=== PATIENT | male | born 1960 | race Caucasian/White ===

== ENCOUNTER 2019-04-07 15:31 | Emergency (ER) | payer SELFPAY ==
[~2019-04-07] VITALS: Ht 172.7 cm; Wt 93.0 kg
[2019-04-07 15:50] VITALS: Ht 172.7 cm; Wt 93.0 kg
[2019-04-07 17:02] VITALS: BP 142/80
== END 2019-04-07 17:02 | disposition home or self-care (01) ==
LOC: ED 15:31
DX: M79.10 Myalgia, unspecified site (principal); V49.3XXA Car occupant (driver) (passenger) injured in unspecified nontraffic accident, initial encounter; Y93.I9 Activity, other involving external motion; Y92.413 State road as the place of occurrence of the external cause; Y99.8 Other external cause status